=== PATIENT | male | born 1965 | race Caucasian/White ===

== ENCOUNTER → 2018-10-19 | Outpatient (CLI) | payer OTHER ==
[~2018-10-19] MED LIST: ACETAMINOPHEN-1 EAC1 PO; ALEVE220 MG PO; IBUPROFEN 800800 M1 PO; SKELAXIN 800 M800 M1 PO; TRAMADOL 50 MG50 MG PO
== END ==
LOC: M.PC 10-07 13:40
DX: M51.16 Intervertebral disc disorders with radiculopathy, lumbar region (principal); M47.26 Other spondylosis with radiculopathy, lumbar region

== ENCOUNTER → 2018-10-26 | Outpatient (CLI) | payer OTHER | LOC: M.MRI 11:11 | DX: M47.816 Spondylosis without myelopathy or radiculopathy, lumbar region (principal); M48.061 Spinal stenosis, lumbar region without neurogenic claudication; D18.09 Hemangioma of other sites; M51.26 Other intervertebral disc displacement, lumbar region; M79.604 Pain in right leg; M79.605 Pain in left leg ==

== ENCOUNTER → 2018-11-02 | Outpatient (CLI) | payer OTHER ==
[~2018-11-02] MED LIST changes: +ACETAMINOPHEN325 M1 PO; +MICARDIS 20MG T20 M1 PO
== END ==
LOC: M.PC 09:40
DX: M54.5 Low back pain (principal); M79.605 Pain in left leg

== ENCOUNTER → 2018-11-16 | Outpatient (CLI) | payer OTHER | END | disposition home or self-care (01) | LOC: M.PC 04:52 | DX: M54.16 Radiculopathy, lumbar region (principal); G89.29 Other chronic pain; I10 Essential (primary) hypertension; Z98.890 Other specified postprocedural states; Z79.899 Other long term (current) drug therapy ==

== ENCOUNTER 2020-02-14 20:25 | Emergency (ER) | payer OTHER ==
[~2020-02-14] VITALS: Ht 175.3 cm; Wt 77.1 kg
[2020-02-14 20:50] VITALS: BP 180/107
[2020-02-14] MEDS ORDERED: EDLUAR10 MG PO (20:55)
[2020-02-14] MEDS ORDERED: MELOXICAM15 MG PO (20:56)
[2020-02-14] MEDS ORDERED: NEURONTIN100 MG PO (20:56)
[2020-02-14] MEDS ORDERED: ADDERALL 20 MG20 MG PO (20:57)
== END 2020-02-14 22:19 | disposition home or self-care (01) ==
LOC: M.ERS 20:25
DX: M54.5 Low back pain (principal); Z79.899 Other long term (current) drug therapy